=== PATIENT | female | born 1960 | race Caucasian/White ===

== ENCOUNTER 2016-11-11 13:13 | Emergency (ER) | payer OTHER ==
[~2016-11-11] VITALS: Ht 167.6 cm; Wt 63.6 kg
[2016-11-11 13:24] VITALS: BP 111/75; PULSE 68; RESP 18; O2SAT 98
[2016-11-11 14:24] LABS: BASOPHILS % (AUTO) 0.3 % (0-3); EOSINOPHILS % (AUTO) 1.4 % (0-5); MONOCYTES % (AUTO) 10.8 % (4-12); Mean Corpuscular Hemoglobin 29.7 pg (27.0-35.0); Mean Corpuscular Volume 91.6 fL (81-100); NEUTROPHILS % (AUTO) 60.2 % (40-74); Platelet Count 325 bil/L (150-400)
--- NOTE | 2016-11-11 14:36 | ED.REPORT ---
HPI-Chest Pain 40 and Over Date of Service Nov 11, 2016 ED Provider: Satish Cruz MD History of Present Illness: Patient is a 55 y.o. F with past medical history of hyperlipidemia, hypothyroidism, tobacco abuse. She presents from urgent care with suddent onset of chest pain radiating into left side of neck that began this morning, assocated with nausea, shortness of breath. Pain described as burning pain, that went into throat. At worst pain rated 6/10, now pain rated at 3/10. Pain not relieved by antacids. Made worse by sitting up leaning forward. Made better by nothing but has improved with rest. Patient denies syncope, nausea, vomiting. Patient stated that she has recently had breast augmentation surgery and a tummy tuck two weeks ago. Quit smoking 3-4 years ago, total 40 pk/yrs Family history of heart disease and [place] in women. Nursing Notes Stated Complaint: CHEST PAIN, POSSIBLE SCHEMIA Chief Complaint: Chest Pain Nursing Notes Reviewed: Yes Allergies: Coded Allergies: Sulfa (Sulfonamide Antibiotics) (Verified Allergy, Unknown, 11/11/16) hydrocodone (Verified Allergy, Unknown, 11/11/16) General Time Seen by MD: 14:00 Chief Complaint Chest pain Hx Obtained From: Patient Arrived By: Walk-in Sudden in Onset?: Yes Onset Occurred: 5 - 8 hours ago Recent Healthcare: Recent doctor visit (urgent care 11/11/16) Past Medical History Past Medical History Notes: Medications: fluocinonide 0.05 % topical cream lorazepam 0.5 mg tablet meloxicam 7.5 mg tablet sertraline 100 mg tablet take 1 tablet by oral route every day simvastatin 10 mg tablet Synthroid 100 mcg tablet triamcinolone acetonide 0.1 % Topical Ointment zolpidem 10 mg tablet Past Medical History Hyperlipidemia Eczema Corns and callus Multiple contusions Hypothyroidism Tobacco abuse Review of Systems Basic Review of Systems Eyes: Vision NL, No discharge ENT: Hearing NL, No pain, No nasal congestion, No pharyngeal pain : No dysuria, No frequency Hematologic: No bleeding, No bruising Endocrine: No cold intolerance, No heat intolerance, No weight gain, No weight loss Constitutional: Denies: Chills, Fatigue, Fever Respiratory: Reports: Shortness of breath, Denies: Hemoptysis Cardiovascular: Reports: Chest pain, Denies: Syncope GI: Reports: Nausea, Denies: Abdominal pain, Dysphagia, Vomiting Complete sys rev & neg: except as marked. Physical Exam Initial Vital Signs Vital Signs (First) Date Time Temp Pulse Resp B/P Pulse Ox O2 Delivery O2 Flow Rate FiO2 11/11/16 13:24 37.1 68 18 111/75 98 Room Air Initial VS: Reviewed Head / Eyes: Atraumatic, Normocephalic, PERRL ENT: Mucous membranes moist, Conjunctiva normal, No scleral icterus Neck: Supple, Non-tender, Full range of motion Back: No CVA tenderness Lymphatic: No lymphadenopathy Extremities: Vascular intact, Neuro intact, No swelling, No tenderness Skin: Warm, Dry, No cyanosis Neurologic: Alert, Oriented, Nonfocal Psychiatric: Mood/affect normal, Behavior normal, Normal thought content General/Constitutional: Awake, Alert, No acute distress, Well appearing Respiratory / Chest: Breath sounds NL, Breath sounds = bilat, No respiratory distress, No rales, No rhonchi, No wheezing, No stridor, No chest tenderness Lower Extremity / Pelvis / MS: Inspection NL, No swelling, Non-tender ( negative davon's sign), No erythema, No deformity, Neurologic intact, Vascular intact, No edema Interpretation & Diagnostics Lab Results Interpretation Result Diagram: 11/11/16 1410 11/11/16 1410 Test 11/11/16 14:10 White Blood Count 5.8th/mm3 (3.8-10.1) Red Blood Count 3.80mil/mm3 (3.90-5.20) Hemoglobin 11.3g/dL (12.0-15.6) Hematocrit 34.8% (35.0-46.0) Mean Corpuscular Volume 91.6fL (81-100) Mean Corpuscular Hemoglobin 29.7pg (27.0-35.0) Mean Corpuscular Hemoglobin Concent 32.5% (32.0-37.0) Red Cell Distribution Width 14.5% (12.3-15.4) Platelet Count 325bil/L (150-400) Neutrophils (%) (Auto) 60.2% (40-74) Lymphocytes (%) (Auto) 27.1% (14-46) Monocytes (%) (Auto) 10.8% (4-12) Eosinophils (%) (Auto) 1.4% (0-5) Basophils (%) (Auto) 0.3% (0-3) D-Dimer 2.4mg/L (<0.50) Sodium Level 139mEq/L (134-144) Potassium Level 4.2mEq/L (3.5-5.2) Chloride Level 101mEq/L (97-108) Carbon Dioxide Level 20mmol/L (18-29) Blood Urea Nitrogen 13mg/dL (6-24) Creatinine 0.67mg/dL (0.57-1.00) Estimat Glomerular Filtration Rate 130mL/min (>59) Glucose Level 91mg/dL (60-99) Calcium Level 9.9mg/dL (8.5-10.1) Magnesium Level 2.0mg/dL (1.6-2.6) Total Bilirubin 0.3mg/dL (0.0-1.2) Aspartate Amino Transf (AST/SGOT) 38U/L (0-50) Alanine Aminotransferase (ALT/SGPT) 22U/L (0-32) Alkaline Phosphatase 53U/L (25-150) Troponin T < 0.010ug/L (0.0-0.011) Total Protein 8.1g/dL (6.4-8.4) Albumin 4.4g/dL (3.4-5.0) ECG Interpretation ECG Interpretation: Sinus rhythm rate 54 Time: 15:06 Interpreted by: ED physician Normal ECG Interpretation: No acute ischemic changes X-Ray Chest Interpretation Chest Xray Interpretation: IMPRESSION: No acute cardiopulmonary disease. Dictated by: Michael Kaiser RRA Interpreted: Shawn Jarrell MD on 11/11/2016 at 14:54 Transcribed by: MAGGIE on 11/11/2016 at 14:55 View: Portable, 1 view Interpretation / Wet Read by: Interpret - Radiologist CT Chest Interpretation IMPRESSION: 1. No pulmonary embolus. 2. 1.7 x 1.8 cm left adrenal nodule with density measurements of 11HU. Recommend dedicated MRI or CT scan of the adrenal glands for definitive characterization. 3. Atherosclerosis including the coronary vasculature. Dictated by: Linnette Mccartney MD, PhD on 11/11/2016 at 16:32 Approved by: Linnette Mccartney MD, PhD on 11/11/2016 at 16:39 Study type: CT pulm angiogram Interpretation / Wet Read by: Interpret - Radiologist Re-Eval/Medical Decision Med Decision/Clinical Course Patient is a 55 y.o. F with past medical history of hyperlipidemia, hypothyroidism, tobacco abuse. She presents from urgent care with suddent onset of chest pain radiating into left side of neck that began this morning, assocated with nausea, shortness of breath. DDX: ACS r/o, PE, GERD, esophagitis, CBC showed mild anemia CMP: normal Elevated D-Dimer 2/4 Troponin < 0.01 Repeat EKG show twave inversion in lead V2 CTA PE protocol ordered r/o PE Time of Eval: 15:21 Re-Evaluation/Progress Note: Patient interview and fully evaluated by Dr. Cruz. Informed pt of need for CTA due to elevated D-dimer and risk factors. Counseled Regarding: Diagnosis, Lab results, Need for follow-up, When/why to return to ED Discharge & Departure Primary Impression: Non-cardiac chest pain Disposition: Home Discharge Condition All VS Reviewed: Yes Condition: Stable Patient Instructions: Chest Pain (ED) Additional Instructions: No dangerous cause for your chest pain was identified. Your chest x-ray showed no sign of pneumonia, your EKG showed no sign of heart attack, and your chest CT scan showed no sign of blood clot in the lungs. Follow-up with your primary care physician later this week or early next week. Further outpatient evaluation may be considered at that time. Return to the emergency department for persistent increased chest pain, difficulty breathing, profuse sweating, high fever, or for other new or worsening symptoms. Referrals: Marie Ramirez MD (PCP) Scribe Attestation Portions of this note were transcribed by Marck Barcenas. I, Dr. Cruz personally performed the history, physical exam and medical decision-making; I reviewed and confirmed the accuracy of the information in the transcribed note. Signed by Roberto Esquivel, 11/11/16 - 4016 Attending Statement I evaluated patient with resident and evaluated independently. I agree with assessment and plan as above. In brief, 55-year-old female with history of DVT in the past and breast augmentation surgery 2 weeks ago presenting with epigastric burning that started at 8:00 morning and lasted until arrival greater than 6 hours. Patient reports it feels like her heartburn.. No signs of ischemia on EKG. Troponins were negative greater than 6 hours after onset of symptoms. Patient's pain resolved with GI cocktail. She did have the elevated d-dimer and CT Angio chest was performed given her history of DVT and recent surgery and showed no evidence of pulmonary embolus. Suspect most likely gastritis given resolution with GI cocktail. Do not suspect acute cardiac ischemia given normal troponins and story as above. Discharged home with plans to follow up with primary doctor in 1-2 days. Return precautions given if any new or worsening chest pain, shortness breath or any other associated symptoms. copies to: Marie Ramirez MD, AARON J DO Nov 11, 2016 14:12 MARCK BARCENAS Nov 11, 2016 15:08 Satish Cruz MD Nov 11, 2016 19:24
[2016-11-11] MEDS ORDERED: Alum-Mag Hydrox-Simeth 30 mL Suspension PO ONE (14:40)
[2016-11-11 14:46] LABS: TROPONIN T < 0.010 ug/L (0.0-0.011)
--- NOTE | 2016-11-11 14:55 | DRSVH ---
PROCEDURE: X-RAY CHEST ONE VIEW, PORTABLE ([id number]) INDICATIONS: PAIN TECHNIQUE: One view of the chest was acquired. COMPARISON: [facility], CR, XR CHEST 2VW, 10/15/2016, 17:51. FINDINGS: Surgical changes and devices: None. Lungs and pleura: No pleural effusions or pneumothorax. Lungs are clear. Mediastinum: Mediastinal contours appear normal. Heart size is normal. Bones and chest wall: No suspicious bony lesions. Overlying soft tissues appear unremarkable. IMPRESSION: No acute cardiopulmonary disease. Dictated by: Michael Kaiser [facility] Interpreted: Shawn Jarrell MD on 11/11/2016 at 14:54 Transcribed by: MAGGIE on 11/11/2016 at 14:55 Approved by: Shawn Jarrell M.D. on 11/12/2016 at 2:09
[2016-11-11 16:02] VITALS: BP 129/59; PULSE 56; RESP 19; O2SAT 100
--- NOTE | 2016-11-11 16:40 | DRSVH ---
PROCEDURE: CT ANGIO CHEST PULMONARY EMBOLISM ([id number]) INDICATIONS: chest pain elevated ddimer h/o dvt TECHNIQUE: After the administration of intravenous contrast, 2 mm thick sections acquired from the pulmonary api danielle to the posterior costophrenic angles. 3-dimensional maximum intensity projection (MIP) coronal a nd sagittal reformats were then acquired through the thorax. For radiation dose reduction, the follo wing was used: automated exposure control, adjustment of mA and/or kV according to patient size. COMPARISON: None. FINDINGS: Image quality: Excellent. Pulmonary arteries: Pulmonary arteries are normal in size, and demonstrate no intraluminal filling d efects to suggest central pulmonary embolism. Lungs and pleura: Lungs are clear. No pleural effusions or pneumothorax. Central and peripheral ai rways are patent. Mediastinum: Heart size is normal, without pericardial effusion. Atherosclerotic calcifications note d in the aortic arch and the coronary vasculature. No mediastinal or hilar adenopathy. Thoracic aor ta is normal in caliber and enhancement. Esophagus is normal in caliber, without hiatal hernia. Bones and chest wall: Bilateral breast implants are noted. No suspicious bony lesions. Ribs and tho racic spine appear intact throughout. Thyroid gland is within normal limits where visualized.. No a xillary or supraclavicular adenopathy. Abdomen: 1.8 x 1.7 cm left adrenal nodule is noted. Visualized upper abdominal solid organs appear n ormal in the early arterial phase of enhancement. IMPRESSION: 1. No pulmonary embolus. 2. 1.7 x 1.8 cm left adrenal nodule with density measurements of 11HU. Recommend dedicated MRI or CT scan of the adrenal glands for definitive characterization. 3. Atherosclerosis including the coronary vasculature. Dictated by: Linnette Mccartney MD, PhD on 11/11/2016 at 16:32 Approved by: Linnette Mccartney MD, PhD on 11/11/2016 at 16:39
[2016-11-11 16:47] VITALS: BP 127/70; PULSE 56; RESP 23; O2SAT 100
[2016-11-11 17:33] VITALS: BP 130/68; PULSE 56; RESP 16; O2SAT 100
[2016-11-11 17:40] VITALS: BP 130/68; PULSE 56; RESP 16; O2SAT 100
== END 2016-11-11 17:40 | disposition home or self-care (01) ==
LOC: SED 13:13
DX: R07.89 Other chest pain (principal); R11.0 Nausea; R06.02 Shortness of breath; E78.5 Hyperlipidemia, unspecified; E03.9 Hypothyroidism, unspecified; Z88.2 Allergy status to sulfonamides; Z88.5 Allergy status to narcotic agent
CPT/HCPCS: 36415; 71010; 71275; 80053; 83735; 84484; 85025; 85379; 93005; 99285; Q9967